=== PATIENT | male | born 1940 | race Caucasian/White ===

== ENCOUNTER 2018-02-01 08:24 | Inpatient (IN) | payer MEDICARE, BC ==
[~2018-02-01] VITALS: Ht 177.8 cm; Wt 94.9 kg
[~2018-02-01 08:24] MED LIST: BENAZEPRIL10 MG PO; BETIMOL 2.5 ML2.5 M1 OP; CENTRUM SILVER1 TA1 PO; ERYTHROMYCIN5 MG/G1 OP; HYDROCODONE BIT1 TA3 PO; LISINOPRIL; LOPRESSOR; PRED FORTE 1 ML1 ML OP; ST. JOSEPH81 M2 PO; ZYMAXID OP; [UNRECOGNIZED DRUG - OTHER]; bp pill
[2018-02-01 08:37] VITALS: BP 145/84; PULSE 77; TEMP 97.9
[2018-02-01 09:04] LABS: BASO % 0.3 % (0.0-2.0); EOS # 0.4 (0.0-0.7); EOS % 3.3 % (0-4.0); GRAN # 8.9 (1.4-6.5); GRAN % 75.1 % (42.2-75.2); HEMATOCRIT 43.3 % (42.0-52.0); HEMOGLOBIN 14.6 g/dl (13.5-18.0); LYMPH # 1.1 (1.2-3.4); LYMPH % 9.6 % (20.0-51.0); MEAN CELL VOLUME 90 fl (80.0-100.0); MEAN CORPUSCULAR HEMOGLOBIN 30 pg (27.0-31.0); MEAN CORPUSCULAR HGB CONC 34 g/dl (33.0-37.0); MEAN PLATELET VOLUME 9.4 fl (7.4-10.4); MONO # 1.3 (0.1-0.6); MONO % 11.3 % (1.7-9.3); PLATELET COUNT 300 K/mm3 (130-400); REDCELL DISTRIBUTION WIDTH-CV 12.8 % (11.5-14.5)
[2018-02-01] MEDS ORDERED: TOPROL XL 25MG25 MG PO (09:09)
[2018-02-01 09:10] LABS: INR 1.1 (0.8-3.0); PROTHROMBIN TIME 12.1 SECONDS (9.7-12.8)
[2018-02-01] MEDS ORDERED: KRILL OIL 3001 EACH PO (09:10)
[2018-02-01 09:14] LABS: ALBUMIN 3.9 gm/dL (3.5-5.0); CALCIUM 9.1 mg/dL (8.4-10.2); CREATININE, serum 0.96 mg/dL (0.66-1.25); MAGNESIUM 2.1 mg/dL (1.6-2.3); TOTAL PROTEIN 7.2 gm/dL (6.4-8.2)
[2018-02-01 11:12] VITALS: BP 172/88; PULSE 81; TEMP 98.2
[2018-02-01 15:54] VITALS: BP 136/75; PULSE 95; TEMP 98.2
[2018-02-01 16:25] VITALS: BP 164/94; PULSE 63; TEMP 100.5
[2018-02-01 17:15] VITALS: TEMP 99.7
[2018-02-01 20:28] VITALS: BP 127/66; PULSE 62; TEMP 100.4
[2018-02-02 02:03] VITALS: BP 110/62; PULSE 53; TEMP 99
[2018-02-02 06:28] LABS: CALCIUM 8.7 mg/dL (8.4-10.2); CREATININE, serum 1.17 mg/dL (0.66-1.25); POTASSIUM 4.4 mmol/L (3.4-5.0)
[2018-02-02 06:56] VITALS: BP 121/69; PULSE 51; TEMP 97.6
[2018-02-02 08:07] LABS: HEMATOCRIT 42.1 % (42.0-52.0); MEAN CELL VOLUME 91 fl (80.0-100.0); MEAN CORPUSCULAR HEMOGLOBIN 30 pg (27.0-31.0); MEAN CORPUSCULAR HGB CONC 33 g/dl (33.0-37.0); PLATELET COUNT 307 K/mm3 (130-400); RED BLOOD COUNT 4.62 M/mm3 (4.20-5.60); REDCELL DISTRIBUTION WIDTH-CV 13.2 % (11.5-14.5)
[2018-02-02 09:48] LABS: BAND 10 % (0-10); BASOPHIL 1 % (0-2); EOSINOPHIL 6 % (0-4); LYMPHOCYTE 11 % (20.0-51.0); NEUTROPHILS 61 % (42.0-75.2)
[2018-02-02 09:49] LABS: PLATELET ESTIMATE NORMAL (NORMAL)
[2018-02-02 11:03] VITALS: BP 115/65; PULSE 49; TEMP 97.6
[2018-02-02 15:10] VITALS: BP 139/70; PULSE 57; TEMP 97.9
[2018-02-03 01:40] VITALS: BP 137/65; PULSE 57; TEMP 97.5
[2018-02-03 06:16] LABS: BASO % 0.4 % (0.0-2.0); EOS # 0.6 (0.0-0.7); EOS % 8.8 % (0-4.0); GRAN # 3.8 (1.4-6.5); GRAN % 56.2 % (42.2-75.2); HEMATOCRIT 42.1 % (42.0-52.0); HEMOGLOBIN 14.2 g/dl (13.5-18.0); LYMPH # 1.3 (1.2-3.4); MEAN CELL VOLUME 90 fl (80.0-100.0); MEAN CORPUSCULAR HEMOGLOBIN 30 pg (27.0-31.0); MEAN CORPUSCULAR HGB CONC 34 g/dl (33.0-37.0); MEAN PLATELET VOLUME 9.8 fl (7.4-10.4); MONO % 14.9 % (1.7-9.3); PLATELET COUNT 285 K/mm3 (130-400); RED BLOOD COUNT 4.69 M/mm3 (4.20-5.60); REDCELL DISTRIBUTION WIDTH-CV 12.9 % (11.5-14.5)
[2018-02-03 06:28] LABS: CALCIUM 8.8 mg/dL (8.4-10.2); CREATININE, serum 0.93 mg/dL (0.66-1.25); MAGNESIUM 2.3 mg/dL (1.6-2.3); POTASSIUM 4.2 mmol/L (3.4-5.0)
[2018-02-03 06:42] LABS: INR 1.3 (0.8-3.0); PROTHROMBIN TIME 14.6 SECONDS (9.7-12.8)
[2018-02-03 07:49] VITALS: BP 136/71; PULSE 56; TEMP 97.7
[2018-02-03] MEDS ORDERED: TOPROL XL 25MG25 MG PO (10:30)
[2018-02-03] MEDS ORDERED: TAMBOCOR50 MG PO (10:31)
== END 2018-02-03 11:30 | disposition home or self-care (01) | DRG 310 ==
LOC: MEDICAL 08:24
PROVIDERS: Internal Medicine Cardiovascular Disease
DX: I48.0 Paroxysmal atrial fibrillation (principal); I10 Essential (primary) hypertension; Z87.891 Personal history of nicotine dependence

== ENCOUNTER 2019-03-18 02:10 | Observation (INO) | payer MEDICARE, BC ==
[2019-03-18] VITALS (10 sets, daily range): BP systolic 102–126; BP diastolic 56–92; PULSE 71–96; TEMP 97.3–97.9
[~2019-03-18] VITALS: Ht 177.8 cm; Wt 97.5 kg
[~2019-03-18 02:10] MED LIST changes: +KRILL OIL 3001 EACH PO; +TAMBOCOR50 MG PO; +TOPROL XL 25MG25 MG PO
--- NOTE | 2019-03-18 06:33 | NUR ---
Patient arrived to the floor, LR was hung with gravity tubing and OR staff was ready to take patient to surgery. Patient returned to the floor at about 0450. Post-op vitals started and vitals remain stable. Patient states some discomfort to penis, from catheter. CBI running at a moderate rate. Urine clear and light yellow. Slowly titrating CBI down. at bedside. 5 page and med rec completed. Patient resting well at this time. Will report off to day shift nurse.
--- NOTE | 2019-03-18 16:00 | NUR ---
Voided clear yellow urine without clots per 6 bottle routine. No complaints. Ambulatory by self. Dismissed to home with spouse.
--- NOTE | 2019-03-18 16:09 | NUR ---
Plan: To return home with Karen Morton [phone] as care support. Patient also listed his as his EMR contact, as well as DPOA. Patient resides in [facility]. Assess: SW met with patient and was at his bedside. patient gave permission to discuss information in front of spouse. Patient denied the use of medical equipments at home. Patient noted that his primary care physician was Dr. Pena, and he does not have any upcoming appointments. Patient reports that his pharmacy is [facility] in [place], and he gets his medications with no complications. patient denied having any care concerns, and he denied a need for any home health services. Action: No additional concerns identified. Patient was educated on community resources and supports.
== END 2019-03-18 16:00 | disposition home or self-care (01) ==
LOC: SURG 02:10 → JCC 03:02
PROVIDERS: ADMIT Urology
DX: R31.0 Gross hematuria (principal); I48.91 Unspecified atrial fibrillation; N40.0 Benign prostatic hyperplasia without lower urinary tract symptoms; E78.5 Hyperlipidemia, unspecified; I10 Essential (primary) hypertension; I34.0 Nonrheumatic mitral (valve) insufficiency; K21.9 Gastro-esophageal reflux disease without esophagitis; Z85.46 Personal history of malignant neoplasm of prostate; Z85.51 Personal history of malignant neoplasm of bladder; Z79.82 Long term (current) use of aspirin; Z88.5 Allergy status to narcotic agent; Z87.891 Personal history of nicotine dependence; Z80.42 Family history of malignant neoplasm of prostate; Z80.8 Family history of malignant neoplasm of other organs or systems
CPT/HCPCS: G0378; G0379; J0690; J2704; J3010

== ENCOUNTER 2019-09-27 06:55 | Day surgery (SDC) | payer MEDICARE, BC ==
[~2019-09-27] VITALS: Ht 177.8 cm; Wt 96.8 kg
[2019-09-27] VITALS (10 sets, daily range): BP systolic 120–162; BP diastolic 59–98; PULSE 63–81; TEMP 97.3–98
[2019-09-27] MEDS ORDERED: ASPIRIN 81M81 MG/TA2 PO (08:40)
[2019-09-27] MEDS ORDERED: LOTENSIN40 MG PO (08:41)
--- NOTE | 2019-09-27 10:40 | NUR ---
Pt arrived to room 342 at this time. He is alert and oriented. Pt reports some discomfort to scrotal area, refuses intervention at this time. Powers DD, pink/red tinged urine present. Pt provided with clear liquids and is tolerating well. IV intact. POC discussed with patient who verbalizes understanding. No needs at this time. Call light within reach.
--- NOTE | 2019-09-27 17:58 | NUR ---
Pt had minimal pain, refused any medication to help. Urine remained unchanged. Verified with chargeback specialist, flow and color are appropriate. Pt has no concerns at this time. Call light within reach.
[2019-09-28 00:26] VITALS: BP 101/54; PULSE 71; TEMP 97.4
--- NOTE | 2019-09-28 02:57 | NUR ---
Patient has rested well throughout the night. Powers catheter in place and draining light pink, clear urine. Patient stated some discomfort to lower abdomen/groin and PRN Tylenol given. This was effective. Patient stated he has trouble sleeping, so PRN melatonin was administered and this was effective. INT to left hand patent. Patient independent in room. Denies any further needs. Will continue to monitor.
[2019-09-28 04:04] VITALS: BP 135/79; PULSE 72; TEMP 98
--- NOTE | 2019-09-28 07:00 | NUR ---
Dr Duran here to see patient.
[2019-09-28 07:49] VITALS: BP 147/83; PULSE 73; TEMP 98.2
--- NOTE | 2019-09-28 10:14 | NUR ---
SW met with the patient to discuss discharge plan. The patient lives in [place] with his , Karen Harrell" (ph#[phone]). He reports independence with ADLs and does not have any DME. The patient's PCP is Dr. David Pena and he receives his medications at the [facility]. He reports no difficulties obtaining his meds. The patient's advanced directives are in EMR. His DPOA-HC is his and daughter, Caleb. The patient plans to return home with his upon discharge. No additional needs at this time.
--- NOTE | 2019-09-28 10:42 | NUR ---
Patient alert and oriented, answers questions appropriately. See assessment. Powers catheter patent and draining clear mcguire urine, no clots noted. Powers care provided. Encouraged ambulation and post op exercises. No c/o at this time.
--- NOTE | 2019-09-28 11:11 | NUR ---
P teaching done regarding mitomycin instillation at bedside. Printed information given. Signed mitomycin orders were sent to pharmacy and Dejuan, pharmacist was notified that we will be ready to give when medication is prepared and delivered to unit. Consent for mitomycin instillation was signed by pt and witnessed by Ashli LIRA.
--- NOTE | 2019-09-28 11:56 | NUR ---
Reviewed with pt the process of mitomycin briefly and following chemotherapy precautions(Gown, double gloves, N95 mask) administered mitomycin after stauffer catheter was drained and clamped. Pt tolerated the procedured well. 450ml of bloody urine without clots was drained from drainage bag and disposed of. Pt is aware of need to reposition every 15 minutes to allow full bladder coverage. He has informed his of the timeline and she will arrive later to pick him up.
[2019-09-28 12:22] VITALS: BP 195/114; PULSE 78; TEMP 98
--- NOTE | 2019-09-28 12:29 | NUR ---
First visit from the income tax analyst. No needs right now.
--- NOTE | 2019-09-28 12:40 | NUR ---
Pt reported at 1215 he was having severe badder pressure. Repositioned and then pt agreed to B&O spupository that was then given. This did help his comfort slightly but he is struggling to tolerate the come and go discomfort. Will stay with pt and encurage tolerance as l0ng as possible but anticipate releaseing mitomycin at the conclusion of one hour.
--- NOTE | 2019-09-28 13:07 | NUR ---
Stayed with pt at bedside . he was able to tolerate the "full bladder" sensation until 1250 and then he stated "I'm done". I released the catheter clamp and 450ml of urine returned. I was red without clots. pt did report that the suppository helped a little bit but really didn't improve things much. He tried laying on his stomach which helped until 1245 when he requested release of clamp. After urine had drained, I provided pericare. 9.5ml of water removed from balloon and catheter was easily removed, penis cleansed. Pt expressed understanding of discharge chemotherapy instructions. Reports was given to Ashli Banks RN who will monitor his voiding and planned discharge. Chemotherapy signage remains in place.
--- NOTE | 2019-09-28 15:20 | NUR ---
Discharge instructions reviewed with patient, verbalized understanding. Discharged ambulatory to auto/home with spouse at 1520.
== END 2019-09-28 15:20 | disposition home or self-care (01) ==
LOC: SDCO 06:55 → SURG 11:30 → SDCO 09-28 15:20
DX: C67.2 Malignant neoplasm of lateral wall of bladder (principal); N30.91 Cystitis, unspecified with hematuria; I48.91 Unspecified atrial fibrillation; I10 Essential (primary) hypertension; I34.0 Nonrheumatic mitral (valve) insufficiency; E78.5 Hyperlipidemia, unspecified; M41.9 Scoliosis, unspecified; Z90.79 Acquired absence of other genital organ(s); Z85.46 Personal history of malignant neoplasm of prostate; Z87.891 Personal history of nicotine dependence; Z80.8 Family history of malignant neoplasm of other organs or systems; Z79.82 Long term (current) use of aspirin; Z79.899 Other long term (current) drug therapy; Z85.51 Personal history of malignant neoplasm of bladder
CPT/HCPCS: OP; C1769; C2617; J0690; J1100; J1885; J2405; J2704; J3010; J7120; J9280; Q9967

== ENCOUNTER 2021-12-01 09:42 | Day surgery (SDC) | payer MEDICARE, BC ==
[~2021-12-01] VITALS: Ht 177.8 cm; Wt 94.0 kg
[~2021-12-01 09:42] MED LIST changes: +ASPIRIN 81M81 MG/TA2 PO; +LOTENSIN40 MG PO
[2021-12-01 10:48] LABS: BASO # 0.1 K/mm3 (0.0-0.2); BASO % 0.6 % (0.0-2.0); EOS # 0.3 K/mm3 (0.0-0.7); EOS % 3.2 % (0.0-4.0); GRAN # 5.7 K/mm3 (1.4-6.5); GRAN % 70.6 % (42.2-75.2); HEMATOCRIT 38.7 % (42.0-52.0); HEMOGLOBIN 13.2 g/dl (13.5-18.0); LYMPH # 1.3 K/mm3 (1.2-3.4); LYMPH % 15.7 % (20.0-51.0); MEAN CELL VOLUME 90 fl (80.0-100.0); MEAN CORPUSCULAR HEMOGLOBIN 31 pg (27-31); MEAN CORPUSCULAR HGB CONC 34 g/dl (33.0-37.0); MONO # 0.8 K/mm3 (0.1-0.6); MONO % 9.3 % (1.7-9.3); PLATELET COUNT 389 K/mm3 (130-400); RED BLOOD COUNT 4.31 M/mm3 (4.20-5.60); REDCELL DISTRIBUTION WIDTH-CV 12.1 % (11.5-14.5)
[2021-12-01] MEDS ORDERED: ELIQUIS 5MG PO (10:48)
[2021-12-01] MEDS ORDERED: TOPROL XL 25MG25 MG PO (10:49)
[2021-12-01] MEDS ORDERED: MULTI VITAMINS1 TAB PO (10:49)
[2021-12-01] MEDS ORDERED: HYGROTON 2525 MG/TAB PO (10:49)
[2021-12-01] MEDS ORDERED: LASIX 40MG TABL40 MG PO (10:50)
[2021-12-01 10:52] VITALS: BP 101/75; PULSE 57; TEMP 98.5
[2021-12-01 10:57] LABS: INR 1.5 (0.8-3.0); PROTHROMBIN TIME 16.9 SECONDS (9.7-12.8)
[2021-12-01 10:59] LABS: PARTIAL THROMBOPLASTIN TIME 39.5 SECONDS (26.0-37.0)
[2021-12-01 11:05] LABS: CALCIUM 9.5 mg/dL (8.4-10.2); CREATININE, serum 0.98 mg/dL (0.72-1.25); MAGNESIUM 2.2 mg/dL (1.6-2.6); POTASSIUM 4.1 mmol/L (3.5-4.5)
[2021-12-01 11:25] LABS: THYROID STIMULATING HORMONE 3.731 uIU/mL (0.350-4.940)
--- NOTE | 2021-12-01 11:41 | NUR ---
Procedure cancelled per Dr Vines.Discharge instructions given to pt.pt verbalizes understanding.Pt escorted out by this nurse.
== END 2021-12-01 11:42 ==
LOC: COL.CAR 09:42
PROVIDERS: Internal Medicine Cardiovascular Disease
DX: I48.0 Paroxysmal atrial fibrillation (principal); Z53.9 Procedure and treatment not carried out, unspecified reason; I48.19 Other persistent atrial fibrillation; I10 Essential (primary) hypertension; J90 Pleural effusion, not elsewhere classified; C61 Malignant neoplasm of prostate; C44.90 Unspecified malignant neoplasm of skin, unspecified; Z87.891 Personal history of nicotine dependence; Z79.01 Long term (current) use of anticoagulants
CPT/HCPCS: J2704; J7120